=== PATIENT | female | born 1990 | race Caucasian/White ===

== ENCOUNTER → 2016-12-17 | Outpatient (CLI) | payer BC ==
[~2016-12-17] VITALS: Ht 167.6 cm; Wt 79.4 kg
[~2016-12-17] MED LIST: ACETAMINOPHEN 500 MG TAB (TYLENOL) PO ONE; NS FLUSH 10 ML PRN IV; NS FLUSH 3 ML PRN IV
[2016-12-17 10:18] VITALS: BP 132/75
--- NOTE | 2016-12-17 10:55 | NUR ---
Dr. Osorio's office requested heart tones by ultrasound with Dr. Watters. Dr. Watters in room.
--- NOTE | 2016-12-17 12:11 | NUR ---
assisted to toilet. cl
== END ==
LOC: EUOP 10:08
PROVIDERS: ATTEND Nurse Practitioner Family
DX: E86.0 Dehydration (principal); J09.X2 Influenza due to identified novel influenza A virus with other respiratory manifestations
CPT/HCPCS: 96360; 96361; J7030; 36000